=== PATIENT | male | born 1970 | race African-American/Black ===

== ENCOUNTER 2020-09-10 12:53 | Emergency (ER) | payer MEDICAID ==
[~2020-09-10] VITALS: Ht 190.5 cm; Wt 79.0 kg
[2020-09-10] MEDS ORDERED: IBUP-2029 MT (13:58)
[2020-09-10 14:00] VITALS: BP 131/90
== END 2020-09-10 14:30 | disposition home or self-care (01) ==
LOC: ER 12:53
DX: M79.671 Pain in right foot (principal); Z88.0 Allergy status to penicillin; Z98.890 Other specified postprocedural states
CPT/HCPCS: 73630; 99283; Z7610